=== PATIENT | female | born 1985 | race Caucasian/White ===

== ENCOUNTER → 2017-12-23 | Outpatient (CLI) | payer BC ==
--- NOTE | 2017-12-23 12:18 | XR ---
EXAMINATION TYPE: XR knee limited RT DATE OF EXAM: 12/23/2017 CLINICAL HISTORY: Right knee pain for 2 to 3 months TECHNIQUE: Three views of the right knee are obtained. COMPARISON: None. FINDINGS: There is no acute fracture/dislocation evident in right knee. Minimal arthropathy is noted as there are small marginal osteophytes of the medial lateral femoral condyles. No suprapatellar roberto nt effusion. The overlying soft tissue appears unremarkable. IMPRESSION: There is no acute fracture or dislocation in the right knee. Minimal arthropathy with sm all marginal osteophytes in the medial and lateral compartment.
== END | disposition home or self-care (01) ==
LOC: RADXRYALE 10:51
PROVIDERS: ATTEND Internal Medicine
DX: M25.761 Osteophyte, right knee (principal)

== ENCOUNTER 2019-02-18 17:49 | Emergency (ER) | payer BC ==
[2019-02-18 17:55] VITALS: BP 123/83; PULSE 84; RESP 16; TEMP 97.9
[2019-02-18] MEDS ORDERED: DIPH,PERTUSS(ACELL),TET PED 0.5 ML SYRINGE IM ONE (18:14)
[2019-02-18] MEDS ORDERED: LIDOCAINE 1% INJ 10MG/ML (20 ML MDV) SQ ONE (18:14)
[2019-02-18] MEDS ORDERED: ONDANSETRON ODT 4 MG TAB PO STA (18:14)
[2019-02-18] MEDS ORDERED: DIPH,PERTUS(ACELL)TETVAC-LF 0.5 ML VIAL IM ONE (18:30)
--- NOTE | 2019-02-18 18:58 | XR ---
EXAMINATION TYPE: XR elbow complete RT DATE OF EXAM: 02/18/2019 CLINICAL HISTORY: Right elbow pain and laceration after fall off of the below TECHNIQUE: Frontal, lateral and oblique images of the right elbow are obtained. COMPARISON: None FINDINGS: There is no acute fracture/dislocation evident in the right elbow. No abnormal fat pad si gns are seen. The overlying soft tissue appears unremarkable. Laceration is seen of the soft tissues overlying the olecranon. No radio opaque foreign body nor osseous laceration. IMPRESSION: There is no acute fracture or dislocation in the right elbow. Soft tissue laceration ove rlying the olecranon with no radiopaque foreign body seen. No osseous laceration.
--- NOTE | 2019-02-18 18:59 | XR ---
EXAMINATION TYPE: XR shoulder complete RT DATE OF EXAM: 02/18/2019 CLINICAL HISTORY: Right shoulder pain after fall TECHNIQUE: Three views of the right shoulder are obtained. COMPARISON: None. FINDINGS: There is no acute fracture/dislocation evident in the right shoulder. The acromioclavicul ar and glenohumeral joint spaces appear within normal limits. The visualized ribs are intact and unr emarkable. IMPRESSION: There is no acute fracture or dislocation in the right shoulder.
--- NOTE | 2019-02-18 20:23 | ED ---
General Adult HPI - General Chief complaint: Wound/Laceration Stated complaint: Arm lac Time Seen by Provider: 02/18/19 18:00 Source: patient Mode of arrival: ambulatory Limitations: no limitations - History of Present Illness Initial comments: Patient is a 33-year-old female presenting to the emergency department with a chief complaint of a cut on the right elbow. Patient reports she was getting off the boat when she fell and hit the propeller. Patient denies any trauma to the head. Patient denies any loss of consciousness. Patient only reports a laceration to the right elbow. Patient denies any active bleeding. Patient reports full range of motion of the right elbow. Patient is unaware of her tetanus status patient denies taking any nhrw-wgr-[id number] medications alleviate his symptoms. - Related Data Previous Rx's Medication Instructions Recorded Cephalexin [Keflex] 250 mg PO Q8HR #20 capsule 02/18/19 Allergies Allergy/AdvReac Type Severity Reaction Status Date / Time No Known Allergies Allergy Verified 02/18/19 17:55 Review of Systems ROS Statement: Those systems with pertinent positive or pertinent negative responses have been documented in the HPI. ROS Other: All systems not noted in ROS Statement are negative. Past Medical History Past Medical History: No Reported History History of Any Multi-Drug Resistant Organisms: None Reported Past Surgical History: No Surgical Hx Reported Past Psychological History: No Psychological Hx Reported Smoking Status: Never smoker Past Alcohol Use History: Occasional Past Drug Use History: None Reported General Exam Limitations: no limitations General appearance: alert, in no apparent distress Head exam: Present: atraumatic, normocephalic, normal inspection Eye exam: Present: normal appearance, PERRL, EOMI Pupils: Present: normal accommodation ENT exam: Present: normal exam, mucous membranes moist, normal external ear exam Neck exam: Present: normal inspection, full ROM Respiratory exam: Present: normal lung sounds bilaterally Cardiovascular Exam: Present: regular rate, normal rhythm, normal heart sounds GI/Abdominal exam: Present: soft, normal bowel sounds Extremities exam: Present: full ROM, normal capillary refill, other (90 bleeding at the site of laceration). Absent: normal inspection (Laceration at the elbow measuring approximately 3 cm.), tenderness Back exam: Present: normal inspection, full ROM Neurological exam: Present: alert Psychiatric exam: Present: normal affect, normal mood Skin exam: Present: warm, intact, normal color Course Vital Signs 02/18/19 17:51 Temperature 97.9 F Pulse Rate 84 Respiratory 16 Rate Blood Pressure 123/83 O2 Sat by Pulse 97 Oximetry Procedures - Laceration Laceration #1 Consent Obtained: verbal consent Indication: laceration Site: other (Right elbow) Size (cm): 3 Description: linear Depth: simple, single layer Sedation/Analgesia: none Anesthetic Used: lidocaine 1% Anesthesia Technique: local infiltration Amount (mls): 5 Pre-repair: irrigated extensively Type of Sutures: nylon Size of Sutures: 4-0 Number of Sutures: 4 Technique: simple, interrupted Patient Tolerated Procedure: well Medical Decision Making - Medical Decision Making Patient is a 33-year-old female presenting to the emergency department with a chief complaint of a cut on her right elbow. Patient was given a tetanus shot. Laceration site was repaired with 4 sutures. Patient tolerated the procedure well. Patient will be discharged with a 5 day course of Keflex. Patient advised to return to emergency department in 10 days for suture removal or sooner if symptoms worsen. Strict return parameters were thoroughly discussed with patient was understanding and agreeable. Case discussed with physician. Disposition Clinical Impression: Laceration Disposition: HOME SELF-CARE Condition: Stable Instructions (If sedation given, give patient instructions): Care For Your Stitches (DC), Laceration (DC) Additional Instructions: Please follow proper wound care instructions. Please follow up with primary care. Please return to emergency department in 10 days for suture removal or sooner if symptoms worsen. Prescriptions: Cephalexin [Keflex] 250 mg PO Q8HR #20 capsule Is patient prescribed a controlled substance at d/c from ED?: No Referrals: Zaria Daigle MD [Primary Care Provider] - 1-2 days Time of Disposition: 20:23
[2019-02-20] MEDS ORDERED: SODIUM CHLORIDE 0.9% IRRIG 1,000 ML BTL IRRIGATION ONE (01:06)
== END 2019-02-18 20:33 | disposition home or self-care (01) ==
LOC: EC 17:49
DX: S51.011A Laceration without foreign body of right elbow, initial encounter (principal); W18.09XA Striking against other object with subsequent fall, initial encounter; Y92.814 Boat as the place of occurrence of the external cause
CPT/HCPCS: 73030; 73080; 90715; 99283; 90471; 12002; J2001

== ENCOUNTER 2024-03-18 15:13 | Emergency (ER) | payer BC ==
[2024-03-18 15:30] VITALS: PULSE 90; TEMP 98.2
[2024-03-18 17:25] LABS: Basophils % (A) 0 %; Eosinophils # (A) 0.2 k/uL (0-0.7); Eosinophils % (A) 3 %; HCT 36.6 % (34.0-46.0); HGB 11.9 gm/dL (11.4-16.0); Lymphocytes # (A) 1.8 k/uL (1.0-4.8); Lymphocytes % (A) 27 %; MCH 26.2 pg (25.0-35.0); MCHC 32.7 g/dL (31.0-37.0); MCV 80.1 fL (80.0-100.0); Mean Platelet Volume 6.9; Monocytes # (A) 0.4 k/uL (0-1.0); Monocytes % (A) 6 %; Neutrophils # (A) 4.1 k/uL (1.3-7.7); Neutrophils % (A) 63 %; Platelet Count 331 k/uL (150-450); RBC 4.57 m/uL (3.80-5.40); RDW 13.4 % (11.5-15.5); WBC 6.6 k/uL (3.8-10.6)
--- NOTE | 2024-03-18 17:26 | CT ---
EXAMINATION TYPE: CT brain wo con CT DLP: 1021.6 mGycm, Automated exposure control for dose reduction was used. DATE OF EXAM: 03/18/2024 5:05 PM COMPARISON: None. CLINICAL INDICATION: Female, 38 years old with history of painless, dilated left pupil, vision loss, painless vision loss, L eye, dilated pupil TECHNIQUE: Brain: Axial CT images of the brain were obtained with coronal and sagittal reformats created and rev iewed. Contrast used: None. Oral contrast used: None. FINDINGS: Brain: Extra-axial spaces: No abnormal extra-axial fluid collections. Ventricular system: Within normal limits Cerebral parenchyma: No acute intraparenchymal hemorrhage or mass effect. The nazario-white junction is well differentiated. Cerebellum: Unremarkable. Mass effect: No evidence of midline shift. Intracranial vasculature: unremarkable Soft tissues: Normal. Calvarium/osseous structures: No depressed skull fracture. Paranasal sinuses and mastoid air cells: Mild scattered paranasal sinus disease. Visualized orbits: Orbital contents are intact. IMPRESSION: No acute intracranial process.
[2024-03-18 17:33] LABS: Prothrombin Time 10.6 sec (10.0-12.5)
[2024-03-18 17:41] LABS: African American GFR (CKD) >90 (>60 ml/min/1.73 sqM); Anion Gap 7 mmol/L; Blood Urea Nitrogen 10 mg/dL (7-17); C Reactive Protein 0.5 mg/dL (<1.0); Carbon Dioxide 24 mmol/L (22-30); Chloride 104 mmol/L (98-107); Glucose 82 mg/dL (74-99); Non-African American GFR(CKD) >90 (>60 ml/min/1.73 sqM); Potassium 4.4 mmol/L (3.5-5.1); Sodium 135 mmol/L (137-145)
--- NOTE | 2024-03-18 17:44 | CT ---
EXAMINATION TYPE: CT angio head neck CT DLP: 601.7 mGycm, Automated exposure control for dose reduction was used. DATE OF EXAM: 03/18/2024 5:19 PM COMPARISON: None. CLINICAL INDICATION: Female, 38 years old with history of painless vision loss, L eye, dilated pupil; PHH, painless vision loss, L eye, dilated pupil TECHNIQUE: Axially acquired helical CT angiogram of the head and neck was obtained with contrast. Axi al images are supplemented with 3D reconstructions and MIP images which were post-processed at an in dependent workstation. NASCET criteria used. Contrast used:65 ml mL of Isovue 370 with IV Contrast, Oral contrast used: None. FINDINGS: CTA HEAD: No evidence of acute intracranial hemorrhage, mass effect, or midline shift. The ventricles, sulci, a nd cisterns are unremarkable. The visualized portions of the internal carotid arteries, middle cerebral arteries, anterior cerebral arteries, and posterior cerebral arteries are patent. The basilar and vertebral arteries are patent. CTA NECK: Right Carotid System: The common carotid artery and external carotid artery are patent. The carotid bifurcation demonstrate s no evidence of hemodynamically significant stenosis. The remaining portions of the internal carotid artery demonstrate normal size without significant narrowing. Left Carotid System: The common carotid artery and external carotid artery are patent. The carotid bifurcation demonstrate s no evidence of hemodynamically significant stenosis. The remaining portions of the internal carotid artery demonstrate normal size without significant narrowing. Vertebral arteries are patent without evidence hemodynamically significant stenosis. There is a three-vessel aortic arch. The origins of the great vessels are patent. No evidence of hemo dynamically significant stenosis. IMPRESSION: 1. No evidence of dissection of the cervical internal carotid arteries or vertebral arteries or any e vidence of significant stenosis at the carotid bifurcations. 2. No evidence of intracranial high-grade stenosis or intracranial aneurysm.
--- NOTE | 2024-03-18 18:12 | ED ---
Eye Problem HPI - General Chief complaint: Eye Problems Stated complaint: Eye issue Time Seen by Provider: 03/18/24 15:56 Source: patient Mode of arrival: ambulatory Limitations: no limitations - History of Present Illness Initial comments: Patient is a 38-year-old female no significant past medical history presenting today for visual field change. Patient states that she has had 3 days of diarrhea and so went to an urgent care this morning due to persistence of diarrhea. At there she had an x-ray of her abdomen performed which she was told just showed bowel gas, she was instructed to stop using Imodium and discharged home. Patient was sitting at home watching TV when she began to feel like there was "gunk " in her eye, she asked her to look at her eye to see if there was any discharge and there was not however her noticed that her left pupil was dilated compared to the right. Patient states that she has slight blurry vision in the left eye, and feels like colors appear "more [place]" when compared to looking at objects with her right eye. Denies pain, headache, dizziness, current foreign body sensation, pain with extraocular movements, numbness, weakness, slurred speech neck pain. She has no other medical hx, denies hx strok e, is not on blood thinners. Does not think any objects could have become stuck in her eye. Was not given any new medications at urgent care. No trauma to the eye. MD chief complaint: vision change Onset/Timin (hr) -: hour(s) Onset Description: gradual Location: left eye Place: home If Injury: none Eye Symptoms: itching, decreased vision, blurry vision Severity: mild Consistency: constant Associated Symptoms: none - Related Data Previous Rx's Medication Instructions Recorded Cephalexin [Keflex] 250 mg PO Q8HR #20 capsule 02/18/19 Allergies Allergy/AdvReac Type Severity Reaction Status Date / Time No Known Allergies Allergy Verified 03/18/24 15:30 Review of Systems ROS Statement: Those systems with pertinent positive or pertinent negative responses have been documented in the HPI. Eyes: Reports: vision change. Denies: eye pain, eye discharge Past Medical History Past Medical History: No Reported History History of Any Multi-Drug Resistant Organisms: None Reported Past Surgical History: No Surgical Hx Reported Past Psychological History: No Psychological Hx Reported Smoking Status: Never smoker Past Alcohol Use History: Occasional Past Drug Use History: None Reported General Exam - General Exam Comments Initial Comments: PE: CONSTITUTIONAL: No apparent distress, well appearing SKIN: Warm, dry, no jaundice, hives or petechiae EYES: Right pupil is 3 mm and reactive, left pupil is 5 mm and nonreactive, when light shone in left pupil, right pupil constricts, when shown in right pupil, left pupil does not constrict, visualized optic discs, no hemorrhage or dilated blood vessels, no desai red spot or pale spot on optic disc HENT: Normocephalic, atraumatic, moist mucus membranes, oropharynx clear without exudates NECK: , Full range of motion, normal appearance PULMONARY: Clear to auscultation without wheezes, rhonchi, or rales, normal excursion, no accessory muscle use and no stridor CARDIOVASCULAR: Regular rate, rhythm, normal S1 and S2. No appreciated murmurs, rubs or gallops. Strong radial pulses with intact distal perfusion. No lower extremity edema GASTROINTESTINAL: Soft, non-tender, non-distended, no palpable masses, no rebound or guarding. No hepatosplenomegaly MUSCULOSKELETAL: Extremities have no gross deformity, no edema, redness, or swelling.. NEUROLOGIC:_a/o x 3, GCS 15, normal mentation and speech. Moves all extremities x 4 without motor or sensory deficit. Cranial nerves: II (visual leyva without defects), III, IV and (extraocular movements are intact however right pupil normal reaction to light, left pupil dilated and nonreactive visual leyva gr ossly intact, no pain with extraocular movement), V (intact facial sensation and jaw opening), VII (no facial droop), IX and X (normal palate movement, midline uvula, normal voice), XI (symmetrical shoulder shrug and lateral head rotation against resistance), XII (midline tongue protrusion). Motor strength is 5/5 in all extremities. No abnormal movements. Normal muscle tone. Sensation to light touch is intact bilaterally. No cerebellar signs (synmbm-qk-bnjn, xkfk-eb-jccl, and rapid alternating movements are normal) PSYCHIATRIC:_normal mood and affect, thought process is clear and linear Limitations: no limitations Course Vital Signs 03/18/24 03/18/24 15:27 19:04 Temperature 98.2 F Pulse Rate 90 90 Respiratory 17 16 Rate Blood Pressure 140/91 120/78 O2 Sat by Pulse 100 99 Oximetry Medical Decision Making - Medical Decision Making Was pt. sent in by a medical professional or institution (, [facility], [employer], urgent care, hospital, or long term...) When possible be specific @ -No Did you speak to anyone other than the patient for history (EMS, parent, family, police, friend...)? What history was obtained from this source @ -No Did you review nursing and triage notes (agree or disagree)? Why? @ -I reviewed and agree with nursing and triage notes Were old charts reviewed (outside hosp., previous admission, EMS record, old EKG, old radiological studies, urgent care reports/EKG's, long term records)? Report findings @ -No old charts were reviewed Differential Diagnosis (chest pain, altered mental status, abdominal pain women, abdominal pain men, vaginal bleeding, weakness, fever, dyspnea, syncope, headache, dizziness, GI bleed, back pain, seizure, CVA, palpatations, mental health, musculoskeletal)? @ -Differential diagnosis remains broad however top considerations include central retinal vein or central retinal artery occlusion, medication side effect, intracranial mass or aneurysm, medication side effect, idiopathic this is not all-inclusive list EKG interpreted by me (3pts min.). @ -As above X-rays interpreted by me (1pt min.). @ -None done CT interpreted by me (1pt min.). @I see no evidence of hemorrhage or mass effect U/S interpreted by me (1pt. min.). @ -None done What testing was considered but not performed or refused? (CT, X-rays, U/S, labs)? Why? @ -None What meds were considered but not given or refused? Why? @ -None Did you discuss the management of the patient with other professionals (professionals i.e. , ANTHONY, [employer]ISHER, lab, RT, psych nurse, social work manager, superior court judge, teacher, hospital chief executive officer, foster care case manager)? Give summary @ Discussed case w/ Dr. Garcia, opthamology, [employer] operations crafts[employer] [facility]- agrees workup in ED reassuring, no additional workup warranted in ED, recommends close follow up on Tuesday, assisted in arranging appointment for the pt at her office for this Tuesday Was smoking cessation discussed for >3mins.? @ -No Was critical care preformed (if so, how long)? @ -No Were there social determinants of health that impacted care today? How? (Homelessness, low income, unemployed, alcoholism, drug addiction, transportation, low edu. Level, literacy, decrease access to med. care, retirement, re hab)? @ -No Was there de-escalation of care discussed even if they declined (Discuss DNR or withdrawal of care, Hospice)? @ -No What co-morbidities impacted this encounter? (DM, HTN, Smoking, COPD, CAD, Cancer, CVA, ARF, Chemo, Hep., AIDS, mental health diagnosis, sleep apnea, morbid obesity)? @ -None Was patient admitted / discharged? Hospital course, mention meds given and route, prescriptions, significant lab abnormalities, going to OR and other pertinent info. @ -Hospital course Patient is a 38-year-old female presenting today for left dilated pupil with some associated blurry vision that began after being seen at an urgent care for three days of diarrhea. Diarrhea improving. No associated GAFFNEY< nausea, vomiting, neck pain, eye pain, redness, or swelling, no pain with extraocular movements. No discharge. No slurred speech, facial droop, numbness or weakness. Does not wear contact lenses. No trauma to the eye. No foreign body sensation. Exam shows well-appearing 38-year-old female in no acute distress. Significant for dilated and nonreactive left pupil. There is a consensual response in the right pupil. Right pupil is round and reactive. I was able to visualize the optic disks and retina, I did not see any AV nicking, blood and thunder appearance/hemorrhage or desai red spot. Visual leyva grossly intact. CT brain and CTA ordered to assess for hemorrhage, aneurysm or mass. Basic labs as well. Visual acuity exam showed 20/20 vision in both eyes. Labs and imaging reviewed. Grossly within normal limits. Abnormal values not concerning for acute pathology related to presenting complaint. I discussed patient's case with Dr. Garcia, ophthalmology with [facility]. She kindly reviewed patient's case with me and after discussing case agrees there is no additional workup or treatment warranted in the emergency department or warranting transfer to [facility]. She kindly assisted in arranging outpatient follow-up appointment for the patient. Confirmed with patient that she is available Tuesday at 2:30 PM for follow-up appointment. Discussed with patient today's findings and plan of care. Patient is agreeable and comfortable plan for discharge. In my medical judgment there is currently no evidence of an immediate life- threatening or surgical condition. Discharge is therefore indicated at this time. Discharge treatment instructions, follow up instructions, and appropriate emergency department return precautions were discussed with the patient and/or medical decision maker. Patient and/or medical decision maker expressed understa nding of and agreed with the treatment plan, follow up instructions, and emergency department return precaution. All patient's and/or medical decision maker's questions were answered. Drug Therapy requiring intensive monitoring for toxicity (Heparin, Nitro, Insulin, Cardizem)? @ -No Were any procedures done? @ -No Diagnosis/symptom? @ -Dilated pupil Acute, or Chronic, or Acute on Chronic? @ -Acute Uncomplicated (without systemic symptoms) or Complicated (systemic symptoms)? @ -Uncomplicated Side effects of treatment? @ -No Exacerbation, Progression, or Severe Exacerbation? @ -No Poses a threat to life or bodily function? How? (Chest pain, [place], [place], pneumonia, PE, COPD, DKA, ARF, appy, cholecystitis, CVA, Diverticulitis, Homicidal, Suicidal, threat to staff... and all critical care pts) @ -Unlikely - Lab Data Result diagrams: 03/18/24 16:35 03/18/24 16:35 Lab Results 03/18/24 03/18/24 03/18/24 Range/Units 16:35 16:35 16:35 WBC 6.6 (3.8-10.6) k/uL RBC 4.57 (3.80-5.40) m/uL Hgb 11.9 (11.4-16.0) gm/dL Hct 36.6 (34.0-46.0) % MCV 80.1 (80.0-100.0) fL MCH 26.2 (25.0-35.0) pg MCHC 32.7 (31.0-37.0) g/dL RDW 13.4 (11.5-15.5) % Plt Count 331 (150-450) k/uL MPV 6.9 Neutrophils % 63 % Lymphocytes % 27 % Monocytes % 6 % Eosinophils % 3 % Basophils % 0 % Neutrophils # 4.1 (1.3-7.7) k/uL Lymphocytes # 1.8 (1.0-4.8) k/uL Monocytes # 0.4 (0-1.0) k/uL Eosinophils # 0.2 (0-0.7) k/uL Basophils # 0.0 (0-0.2) k/uL PT 10.6 (10.0-12.5) sec INR 1.0 (<1.2) Sodium 135 L (137-145) mmol/L Potassium 4.4 (3.5-5.1) mmol/L Chloride 104 (98-107) mmol/L Carbon Dioxide 24 (22-30) mmol/L Anion Gap 7 mmol/L BUN 10 (7-17) mg/dL Creatinine 0.69 (0.52-1.04) mg/dL Est GFR (CKD-EPI)AfAm >90 (>60 ml/min/1.73 sqM) Est GFR (CKD-EPI)NonAf >90 (>60 ml/min/1.73 sqM) Glucose 82 (74-99) mg/dL Calcium 9.0 (8.4-10.2) mg/dL C-Reactive Protein 0.5 (<1.0) mg/dL Disposition Clinical Impression: Dilated pupil Disposition: HOME SELF-CARE Condition: Good Additional Instructions: Every disease is a spectrum and a small chance still exists that a serious condition could develop, for this reason, please monitor yourself closely for new, changing or worsening symptoms, sudden onset headache, further visual field changes, pain in your eye, discharge from your eye, new numbness, weakness, slurred speech, fever, inability to tolerate/keep down fluids or your medications, inability to follow up with outpatient providers as instructed and should you experience these symptoms or should you have any further concerns for your wellbeing please return to the ED or call 911 immediately. PLEASE call your primary care physician as soon as possible to arrange / discuss plan for followup appointment. Appointment in the next 1-3 days is strongly encouraged if possible. Please follow-up with Dr. Garcia's appointment on 2:30 PM this coming Tuesday at [facility], [address], [place] PLEASE let us know here before you leave if there is anything further we can do to be of any assistance. Take care and feel Better! Is patient prescribed a controlled substance at d/c from ED?: No Referrals: Zenon Boyd MD [Primary Care Provider] - 1-2 days [facility] [Provider Group] - 1-2 days Decision Time: 19:17
[2024-03-18 19:05] VITALS: BP 120/78; RESP 16
== END 2024-03-18 19:28 | disposition home or self-care (01) ==
LOC: EC 15:13
DX: H57.04 Mydriasis (principal)
CPT/HCPCS: 99284; 36415; 80048; 85025; 85610; 86140; 70496; 70450; 70498; Q9967